=== PATIENT | female | born 1945 | race Caucasian/White ===

== ENCOUNTER → 2021-08-11 12:38 | Outpatient (CLI) | payer MEDICARE, OTHER, SELFPAY ==
[2021-08-11 13:20] LABS: Add Manual Diff / Slide Review NO; Basophils Absolute Auto 100 /uL (0-100); Basophils Percent Auto 0.8 % (0-2); Eosinophils Absolute Auto 800 /uL (0-450); Hematocrit 38.5 % (36-46); Hemoglobin 12.9 g/dL (12.0-16.0); Lymphocytes Absolute Auto 2200 /uL (1100-4500); Lymphocytes Percent Auto 22.7 % (25-40); Mean Corpuscular HGB Conc 33.6 % (30-36); Mean Corpuscular Hemoglobin 32.2 PG (26-34); Monocytes Absolute Auto 500 /uL (0-900); Monocytes Percent Auto 5.7 % (3-14); Neutrophils Absolute Auto 6000 /uL (1500-7000); Neutrophils Percent Auto 62.8 % (50-75); Platelet Count 258 X10^3/uL (150-400); Red Blood Cell Count 4.01 X10^6/uL (4.0-5.2); Red Cell Distribution Width 15.6 % (11.6-14.8); White Blood Cell Count 9.6 X10^3/uL (4.5-11.0)
[2021-08-11 14:04] LABS: Carbon Dioxide 28 mmol/L (22-32); Chloride 101 mmol/L (98-107); HEMOLYSIS < 15 (0-50); Potassium 4.4 mmol/L (3.4-5.1); Sodium 141 mmol/L (137-145)
== END ==
PROVIDERS: Referring Provider Orthopaedic Surgery; Visit Provider Orthopaedic Surgery
DX: Z01.818 Encounter for other preprocedural examination (principal); Z01.812 Encounter for preprocedural laboratory examination
CPT/HCPCS: 36415; 80051; 85025; 93005; 93010

== ENCOUNTER → 2021-09-06 16:04 | Outpatient (CLI) | payer MEDICARE, OTHER, SELFPAY ==
[2021-09-06 18:09] LABS: COVID19 -Nasal RAPID Negative (Negative)
== END ==
PROVIDERS: PCP Nurse Practitioner; Visit Provider Family Medicine Sleep Medicine
DX: Z20.822 Contact with and (suspected) exposure to COVID-19 (principal)
CPT/HCPCS: 87635; C9803

== ENCOUNTER 2021-09-09 14:39 | Inpatient (IN) | payer MEDICARE, OTHER, SELFPAY ==
[2021-09-01 09:55] VITALS: BMI 37.5
[2021-09-08] VITALS (15 sets, daily range): BP systolic 105–134; BP diastolic 45–62; PULSE 74–95; RESP 10–18; TEMP 34.3–36.5; O2SAT 12–98; BMI 37.4
--- NOTE | 2021-09-08 11:00 | DI.RAD.S_ITS ---
PROCEDURE: XR KNEE LT 1TO2V INDICATIONS: POST OP LEFT TOTAL KNEE TECHNIQUE: 3 views of the knee were acquired. COMPARISON: None. FINDINGS: Total knee arthroplasty in good position. Intra-articular and soft tissue air noted. Overlying skin sabrina present. No fracture. IMPRESSION: Total left knee arthroplasty in good position Approved by: Reynaldo Paulino M.D. on 09/08/2021 at 17:48
[2021-09-08] MEDS: LACTATED RINGERS 1,000 ML 42 ML IV ×2 (14:31→16:37)
[2021-09-08] MEDS: ACETAMINOPHEN 325 MG TABLET 975 MG PO (14:33)
[2021-09-08] MEDS: CELECOXIB 200 MG CAPSULE PO (14:33)
--- NOTE | 2021-09-08 15:03 | PM.PREOP ---
Pre-operative Note COVID-19 COVID-19 status: Negative Interval Note History & Physical reviewed/Exam performed by Physician: Yes Changes to H&P: No
--- NOTE | 2021-09-08 15:18 | P.OP_ITS ---
Operative Date/Time/Diagnoses Date of procedure: 09/08/21 Time of procedure: 18:01 Pre-op diagnosis: Left knee osteoarthritis Post-op diagnosis: same Procedure & Clinicians Procedure: Left total knee arthroplasty Same procedure as scheduled: Yes Indications: The patient presents today for total knee arthroplasty after failure of conservative treatment. The nature of the procedure including the risks and benefits, alternatives, postoperative course and expected outcome were discussed and all questions answered. Consent was obtained. Operative site confirmed and marked. Surgeon: Yasir Castillo Net Developer Architect: Nikki Sutton Anesthesia Type: General and Local Operative Notes Closure Type: primary Specimen(s): none sent Prosthetic devices, grafts, tissues, transplants, or devices: [employer]hew Delia BCS: 6 femoral component, 4 tibial component, 11 mm constrained BCS polyethylene tray and 35 x 7.5 mm round patella Applied: implant(s) Estimated Blood Loss (mL): 20 Blood products transfused: none Tourniquet time (min): 105 Procedure in detail: The patient was taken to the operative suite and placed under anesthesia. The patient was given prophylactic antibiotics prior to surgery. The patient was also given tranexamic acid, 1 g, just prior to surgery for postoperative hemostasis. The lateral knee was prepped and the joint injected with 20 mL of 1% Lidocaine with epinephrine. The knee was then prepped and draped in usual sterile fashion. The leg was exsanguinated with an Esmarch dressing and the tourniquet raised to 250 torr. A 15 cm anterior incision was made. Next a medial trivector arthrotomy was made. The extensor mechanism was marked to ensure accurate repair. Initial exposing dissection was carried out medially and laterally. The knee was then flexed and the intramedullary femoral guide anita placed. The distal femoral cut was made in 6? of valgus at the +0 position. The femoral size was measured and the appropriate cutting block was then placed and the anterior, posterior and chamfer cuts made. The intramedullary tibial alignment anita was then placed. The guide was set to remove approximately 10 mm from the less affected medial side. The proximal tibial cut was then made with an oscillating saw. All meniscus and bony debris was then removed. Posterior femoral osteophytes removed with a curved osteotome. Flexion extension gaps were checked. There was expected tightness on the lateral side. This was corrected using a 15 blade to release the lateral structures in a pie crust technique. There was still some degree of medial laxity due to stretching of medial collateral ligament. The soft tissues were then injected with a combination of 20 mL of half percent Marcaine with epinephrine and 20 mL of Exparel. The trial components were then placed. The knee was then extended and the patellar thickness was measured and a cut made removing approximately 8 mm of bone. The patella was then sized and drilled. Some excess lateral bone was excised and the patellofemoral ligament released. [The knee went into full extension and flexion to approximately 120? limited by soft tissue. There was good medial-lateral balance throughout motion with mild medial laxity Patellar tracking was excellent. The trial components were removed and the knee was cleansed with Pulsavac irrigation and dried. The final components were cemented with high viscosity vacuum mixed bone cement with antibiotics. The joint was filled with a dilute Betadine solution. The knee was held in extension and the patellar clamped until the cement was adequately cured. The knee was then irrigated. The extensor mechanism was closed with 5 interrupted #1 Vicryl sutures and a running Quill suture at approximately 90 degrees of flexion. The joint was then injected with a combination of 1 g of tranexamic acid and 20 mL of quarter percent Marcaine with epinephrine. The subcutaneous tissue was closed with 2 0 Vicryl. The skin was closed with sabrina and surgical adhesive. An Aquacel dressing and Hardeep wrap were then applied. The patient tolerated the procedure well and was returned to recovery room in good condition. Complications: none Post-operative Condition: stable Disposition: PACU Plan for aftercare: [facility] Protocol.
[2021-09-08] MEDS: CEFAZOLIN 2 GM/20 ML SYRINGE IV (15:40)
[2021-09-08] MEDS: TRANEXAMIC ACID 1,000 MG in SODIUM CHLORIDE 0.9% 100 ML 200 ML IV (15:42)
[2021-09-08] MEDS: LIDOCAINE 1% W/EPI 20 ML INJ (15:43)
--- NOTE | 2021-09-08 15:53 | SUR.OPER ---
Supine on padded OR bed. Pillow under head, arms secured on padded armboards <90 degree abduction. Safety belt across torso. Non-operative leg secured with tape over blanket over lower leg. Operative leg secured in DeMayo/Joey/Nathe positioner. Foam padded brace at thigh of operative leg.
[2021-09-08] MEDS: BUPIVACAINE 0.25% W/ EPI (PF) 40 ML, BUPIVACAINE LIPOSOME 266 MG, SODIUM CHLORIDE 0.9% ... INJ (16:05)
[2021-09-08] MEDS: BUPIVACAINE 0.25% W/ EPI (PF) 20 ML, TRANEXAMIC ACID 1,000 MG, SODIUM CHLORIDE 0.9% 10 ML INJ (16:33)
--- NOTE | 2021-09-08 18:41 | SUR.PHASEI ---
Addendum entered by Dora Clark R.N. 09/08/21 19:31: 1855-report completed to RN by phone. oxygen down to 3 lnc. sats wnl. respirations better.more awake and alert. continues to refuse offers for po fluids when asked. iv saline locked for transfer. 1901-To room by bed -with oxygen, and walker,a personal bag, and plastic bag of clothes. c/0 itching sensation on transfer to room -only to legs. 1904-In room, transfer of care to RN at bedside. patinent now itching lower arms. no rash. just arms and legs affected. RN aware-to reasess. Original Note: 09/08/2105-5908-Hjtwdks into Pacu. patient not on board. Patient got accidently discharged from Hospital,admitting called to re admit patient. all pacu charting is under discharge sections of pacu. 1834-floor called for report. RN unavailable. to call back. Daughter called and updated.
--- NOTE | 2021-09-08 19:49 | PC.NURSE ---
Pt arrived to unit at 191, report endorsed to oncoming RN for nights, patient settled and VSS,afebrile on 4LNC. She is A&Ox3, conversing easily reports numbess from knees down, able to wiggle toes. PIETRO wrap c/d/I.
[2021-09-08] MEDS: LACTATED RINGERS 1,000 ML 100 ML IV (21:41)
[2021-09-09 00:32] VITALS: BP 112/50; PULSE 77; RESP 16; TEMP 35.7; O2SAT 97
[2021-09-09] MEDS: ACETAMINOPHEN 325 MG TABLET 650 MG PO ×4 (02:00→20:46)
[2021-09-09] MEDS: CEFAZOLIN 2 GM/20 ML SYRINGE IV ×2 (02:00→09:25)
[2021-09-09] MEDS: ASPIRIN EC 81 MG TABLET PO ×3 (02:01→20:46)
[2021-09-09] MEDS: allopurinoL 300 MG TABLET PO ×3 (02:01→20:46)
[2021-09-09] MEDS: DOCUSATE 100 MG CAPSULE PO ×3 (02:01→20:46)
[2021-09-09 04:28] VITALS: BP 117/57; PULSE 79; RESP 16; TEMP 35.7; O2SAT 97
--- NOTE | 2021-09-09 04:51 | PC.NURSE ---
Pt arrived to the floor on 09/08 at 1910. This nurse process admission and noticed pt was not listed on pyxis. Further research indicated that pt was accidentally D/C while in PACU (see phase I recovery note by RN Eduardo). Pt was readmitted but pyxis issue remains. This nurse called [facility] but was told that they are unable to assist due to the type of admission error. This nurse immediately informed preceptor and coordinator of the issue. Administration of scheduled meds was significantly delayed because of this issue. This nurse notified MD via the answering service of the med administration delay and pt low temp (93.5 - 96.5). This nurse constantly monitored the pt throughout the night for safety due to internet media planner delays. Pt was alert, oriented, easily awaken from sleep, cooperative, v/s stable, and reports pain level at 3 out of 0 to 10 scale level throughout the shift. Issue was resolved at 0150 and first dose of scheduled meds was administered at 09/09 0201. QMM submitted.
[2021-09-09 06:15] LABS: Hemoglobin 11.2 g/dL (12.0-16.0)
[2021-09-09] MEDS: LACTATED RINGERS 1,000 ML 100 ML IV (07:30)
[2021-09-09 08:05] VITALS: BP 116/53; PULSE 83; RESP 16; TEMP 35.9; O2SAT 96
--- NOTE | 2021-09-09 09:20 | P.DS_ITS ---
History of Present Illness History of Present Illness Date Patient Seen: 09/09/21 Time Patient Seen: 09:21 Chief complaint: LT TKA *OPB* Narrative: The history and physical is contained in the chart previously completed note. Please refer to that note for this information. Discharge Providers Provider Date of admission: 09/08/21 18:16 Discharge Date: 09/09/21 Primary care physician: KRISSY Puentes Consults: 09/08/21 18:59 Consult to Discharge Planning Routine Comment: Consult to Physical Therapy Evaluate & Treat Comment: Physician Instructions: postop TKA protocol Consult to Respiratory Therapy Evaluate & Treat Comment: Physician Instructions: Evaluate and treat Discharge provider: Kev Willett MD Summary Hospital Course Discharge Diagnosis: 1. Left knee osteoarthritis 2. Post hemorrhagic anemia Hospital Course: The patient was admitted to the hospital and taken directly to the operating r oom on September 08, 2021 where she underwent a left total knee replacement by Dr. Yasir Csatillo. She had reasonable pain to control on postoperative day 1. At the time of this dictation the plan is for her to have physical therapy and then be discharged home later in the day. She has a mild post hemorrhagic anemia that should not require specific treatment. Status at Discharge Cognitive/behavioral status at discharge: oriented Functional status at discharge: uses cane/walker Overall status at discharge: patient is progressing back to baseline Time Spent with Patient Time spent: Less than 30 minutes Exam Vital Signs (past 8 hours): - 09/09/21 04:28 09/09/21 08:05 Temperature 96.3 F L 96.6 F L Pulse Rate 79 83 Respiratory Rate 16 16 Blood Pressure 117/57 L 116/53 L Pulse Oximetry 97 96 Oxygen Delivery Method Nasal Cannula Oxygen Flow Rate 2 Narrative Exam Narrative: Left knee wound is dressed with no drainage on the bandage. Calf is soft. Light touch is unchanged from preoperative and motion is intact in the left lower extremity. Objective Labs Result Diagrams: 09/09/21 05:47 Labs: Laboratory Results - last 24 hr 09/09/21 05:47 Hgb 11.2 L Hct 34.0 L PFSH Medical History (Updated 09/01/21 @ 10:19 by Amy Rios RN) Arthritis Diabetes GERD (gastroesophageal reflux disease) HTN (hypertension) Neuropathy Osteoarthritis Pneumonia (12/2020) Tinnitus Wound of foot (08/28/21) Surgical History (Updated 09/01/21 @ 10:17 by Amy Rios RN) History of bilateral tubal ligation History of surgery (~2009) History of surgery Hx of bilateral cataract extraction Hx of hand surgery (~2016) Hx of sinus surgery Hx of tonsillectomy Social History household members: none Smoking Status: Never smoker alcohol intake: current Discharge Assessment & Plan Assessment and Plan Assessment: Stable postoperative day 1 status post left total knee replacement. She has a mild post hemorrhagic anemia that should resolve with time. Plan of Treatment: Physical therapy this morning. At this time the plan is for her to discharge into the care of her sister in [place] later in the day. Discharge prescriptions have been written for oxycodone. She is to use Naprosyn and Tylenol for additional pain control and low-dose aspirin for DVT prophylaxis. Discharge Plan Discharge Plan Patient Disposition: Home Discharge orders & Medications Prescriptions: New acetaminophen 325 mg Tablet 650 mg PO TID 30 Days Qty: 180 0RF aspirin 81 mg Tablet,Delayed Release (Dr/Ec) 81 mg PO BID 42 Days Qty: 84 0RF oxycodone 5 mg Tablet 5 mg PO Q4H PRN (Reason: Pain, Moderate (4-6)) Qty: 40 0RF Continued amlodipine 10 mg Tablet 10 mg PO DAILY 0RF metformin 1,000 mg Tablet 1,000 mg PO BID 0RF allopurinol 300 mg Tablet 300 mg PO BID 0RF olmesartan-hydrochlorothiazide 40-12.5 mg Tablet 1 tab PO DAILY 0RF omeprazole 20 mg Tablet,Delayed Release (Dr/Ec) 20 mg PO Q OTHER DAY PRN (Reason: GERD) 0RF Slow Fe 142 mg (45 mg iron) Tablet Extended Release 142 mg PO DAILY 0RF naproxen sodium [Aleve] 220 mg Capsule 220 mg PO DAILY PRN (Reason: Pain) 0RF Label Comments: 1 month at least Discontinued aspirin [Aspir-81] 81 mg Tablet,Delayed Release (Dr/Ec) 81 mg PO DAILY PRN (Reason: Pain) 0RF Label Comments: several weeks acetaminophen 500 mg Tablet 500 mg PO DAILY PRN (Reason: Pain) 0RF Label Comments: 2-3 weeks Follow up/Referrals: Mere Gurrola ARNP [Primary Care Provider] - Yasir Castillo MD [Physician] - 2 Weeks Kev Willett MD [Physician] - Discharge Health Status Multidrug resistant organism: No MDRO Diet/Activity/Treatments Diet: Diet as Tolerated and Carb-consistent/Diabetic Activity: You may bear weight as tolerated on your left leg. Cold/Heat Therapy: Apply ice to the left knee for 15 minutes every hour as needed for pain control. Skin/Wound/Dressing Care Report to your healthcare provider any signs of infection, such as:: chills, fe sherri, night sweats, increased pain, unusual drainage and unusual redness Dressing: You may remove the Hardeep wrap 3 days after surgery and shower normally with the deeper dressing in place. Leave the deeper dressing in place until your postoperative follow-up. If the central strip of the deeper dressing becomes saturated with either water or blood, please call the office to have it evaluated. Visit Report/Discharge Packet Instructions: DI for Knee Replacement, DI for Prescription Opioid Use Stand Alone Forms: Surgery Discharge Discharge Data Primary Care Provider: Mere Gurrola Attending Provider: Yasir Castillo VTE Deep Vein Thrombosis/Pulmonary Embolism Present on Admission: No
[2021-09-09] MEDS: hydroCHLOROthiazide 25 MG TABLET 12.5 MG PO (09:22)
[2021-09-09] MEDS: LOSARTAN 50 MG TABLET 100 MG PO (09:22)
[2021-09-09] MEDS: AMLODIPINE 5 MG TABLET 10 MG PO (09:23)
[2021-09-09] MEDS: METFORMIN HCL 500 MG TABLET 1000 MG PO ×2 (09:23→16:57)
--- NOTE | 2021-09-09 10:51 | PT.IIE ---
Current Diagnoses Unilateral primary osteoarthritis, left knee (09/08/21) Surgery Performed Operation Date: 09/08/21 15:00 Actual Procedures p Total Knee Arthroplasty(Left) - Yasir Castillo MD Medical History (Last Updated 09/01/21 @ 10:19 by Amy Rios RN) Arthritis Diabetes GERD (gastroesophageal reflux disease) HTN (hypertension) Neuropathy Osteoarthritis Pneumonia (12/2020) Tinnitus Wound of foot (08/28/21) Physical Therapy Inpatient Evaluation/Re-Eval M1 PT/OT-IP Prior Functional Status Start: 09/09/21 10:38 Freq: Status: Active Protocol: Document 09/09/21 10:39 BC (Rec: 09/09/21 10:51 BC [id number]) Medical Review Prior Functional Status Medical History Reviewed Yes Mobility and Gait Pt reports using SPC for ambulation due to L knee weakness. Activities of Daily Living and IADL's Independent Prior Functional Level (Other details) Pt reports being fully independent and use of SPC. She lives alone. She has a supportive sister and adult child that live nearby. Social History Household Members none Living Arrangements House Number of Floors (Floors) One Floor Number of Stairs To Enter/Railing? 4 steps to enter with railing Home Environment Standard Height Toilet Home Equipment Front Wheel Walker,Straight Cane Employment Status Retired M2 PT-IP Current Condition Start: 09/09/21 10:38 Freq: Status: Active Protocol: Document 09/09/21 10:39 BC (Rec: 09/09/21 10:51 BC [id number]) Physical Therapy Current Condition Current Condition Evaluation Date 09/09/21 Treatment Diagnosis abnormality of gait, impaired LLE knee ROM/strength Onset Date 09/08/21 M3 PT-IP Subjective Start: 09/09/21 10:38 Freq: Status: Active Protocol: Document 09/09/21 10:39 BC (Rec: 09/09/21 10:51 BC [id number]) Subjective Physical Therapy Visit Type Type Initial Evaluation Visit Start Time 09:50 Visit Stop Time 10:30 Total Visit Minutes 40 Physical Therapy Visit Comments Patient Goals Build up strength in LLE so it does not buckle on her anymore Therapy Pain Assessment Pain When Pain Assessed At Rest Pain Present Pain Present Denied Pain M4 PT-IP Mobility and Gait Start: 09/09/21 10:38 Freq: Status: Active Protocol: Document 09/09/21 10:39 BC (Rec: 09/09/21 10:51 [id number]) PT-Bed Mobility Assessment Supine to Sit Supine to Sit Standby Assistance Sit to Supine Sit to Supine Contact Guard Assistance Scooting Scooting to Edge of Bed Standby Assistance PT-Transfer Assessment Sit to and From Stand Sit to and from Stand Contact Guard Assistance, Minimal Assistance,1 Person Assistance,Use of Upper Extremities Equipment Transfer Assistive Device Front Wheeled Walker Comments Mobility Comments Pt did not want to transfer to chair this AM. She was able to take 4 lateral steps with FWW along edge of bed. She did not feel comfortable with attempting any further gait assessment due to lightheadedness. PT-Balance Assessment Sitting Balance and Reactions Static Sitting Balance Ability Normal Dynamic Sitting Balance Ability Normal Standing Balance and Reactions Static Standing Balance Ability Fair Dynamic Standing Balance Ability Fair M5 PT-IP Objective Assessments Start: 09/09/21 10:38 Freq: Status: Active Protocol: Document 09/09/21 10:39 BC (Rec: 09/09/21 10:51 [id number]) Orientation Orientation/Cognition Level of Alertness Alert Orientation Name,Age,Birthday,Month,Date, Year,Day of Week,Place, Situation Gross Range of Motion Upper Extremity ROM Assessment Within Functional Limits Lower Extremity ROM Assessment Left Impaired Impairments L knee AROM ~5-60 deg Strength Upper Extremity Strength Assessment Within Functional Limits Lower Extremity Strength Assessment Left Impaired Hip 3/5 Knee 2+ to 3/5 Ankle 5/5 Coordination Assessment Gross Coordination Gross Coordination WNL Sensation Assessment Sensation Gross Sensation Right LE Impaired,Left LE Impaired Comments Sensation Comments Pt reports BLE neuropathy Muscle Tone Muscle Tone WNL Yes M6 PT-IP Treatment Start: 09/09/21 10:38 Freq: Status: Active Protocol: Document 09/09/21 10:39 BC (Rec: 09/09/21 10:51 [id number]) Physical Therapy Treatment Exercises Exercises Ankle Pumps,Gluteal Sets,Quad Sets,Heel Slides Education Education Provided Precautions,Post-Op Packet, Safety M7 PT-IP Assessment and Plan Start: 09/09/21 10:38 Freq: Status: Active Protocol: Document 09/09/21 10:39 BC (Rec: 09/09/21 10:51 [id number]) PT Summary Assessment and Plan Potential Rehabilitation Potential Excellent Status of Condition at Evaluation Stable Summary Impairments ROM,Strength,Balance, Coordination,Bed Mobility, Transfers,Gait,Activity Tolerance Progress Towards Goals Progressing Toward Goals Assessment Summary Pt admitted for L TKA due to OA. She reports ~1 year of using a SPC for stability due to LLE knee buckling/weakness. She admits to several falls prior to use of SPC but is otherwise independent with mobility and self/home care ADLs. She lives alone but has a supportive family. Her sister will come to stay with her at discharge. CLOF: Pt is requiring CGA for mobility. She is demonstrating good safety awareness and proper use of FWW for transfers. Her limitation this morning was lightheadedness and faint feeling. BP supine 107/55; seated 123/66; standing 117/60 . In standing she was able to take several lateral steps to gain HOB. She did not feel comfortable with attempting any further ambulation away from bed due to dizziness/ faint feeling. Pt was assisted back to bed with all needs in reach. Pt will benefit from IPPT to address further mobility training, stair training and education on HEP. Goals Bed Mobility Goal Independent Transfer Goal Independent,Front Wheeled Walker Gait Goal Standby Assistance,Front Wheel Walker Gait Distance 75 Other Goals Pt will ascend/descend 4 steps with railing and min A to safely access her home. Days to Meet Goals 3 Frequency of Treatment Frequency Of Treatment Twice a Day Treatment Plan Physical Therapy Treatment Plan Bed Mobility Training,Transfer Training,Gait Training, Therapeutic Exercise,Balance Retraining,Post Op Education, Discharge Planning, Neuromuscular Re-ed, Coordination Retraining Weight Bearing Status Weight Bearing Status Weight Bear as Tolerated Recommendations To Nursing Amount of Assist Needed 1 Person Assist Discharge Recommendations PT Discharge Recommendations Home with Assistance, Outpatient PT Other Discharge Recommendations Pt to discharge home with son assisting at stairs and sister to stay with her for ~1 week. Equipment Needed for Home Before She has a FWW/SPC. Further Discharge review on bathroom DME needed. Transportation Needs at Discharge Private Vehicle
--- NOTE | 2021-09-09 13:54 | CM.DANOTE ---
Addendum entered by SALVADOR Sanchez 09/09/21 15:20: ADD: Per PM PT session, pt remains orthostatic and not stable for d/c home with sister yet today and PT will continue working with pt in the AM for stairs and CG training with sister. RN and UR RN called Ortho MD to update and MD agreeable with cancelling discharge and changing pt's admission order. BF Original Note: Patient is a 76 yo female who was admitted on 09/08/21 for LTKA. Pt has [employer] and [employer] for insurance and her PCP is Mere Gurrola. EMR was reviewed. Per Ortho , pt tolerated surgical intervention well and may be medically stable to d/c home tonight vs tomorrow pending progress with PT. Per PT, pt was only able to side step about 4 steps before becoming dizzy and needing to sit. BP was stable but pt was not feeling well. PT will attempt further assessment this afternoon when sister present for possible stairs and CG training. PT recommending likely home with family assist and outpt PT pending progress. SW met bedside with pt and sister and explained role and pt confirms she lives at home alone in [facility] but her sister lives nearby and plans to stay with pt for a couple weeks to assist and pt's adult son is local and can assist with getting up the steps into the house. Pt states her Dtr is not local but is her DPOA and pt has lots of supportive family and all have hx of surgery for knees, joints, shoulders, etc due to genetic arthritis. Pt states she still feels dizzy but agreeable to attempting further PT soon towards determining d/c home tonight vs tomorrow. Pt denies any hx of HH or SNF and has outpt PT already set up. Plan: SW to follow for further PT this afternoon to confirm safe plan of d/c home via sister POV and sister to stay to assist a few weeks and outpt PT and any further identified discharge planning needs. Pt still needs to do stairs and CG training with sister. SALVADOR Sanchez Discharge Planning/Care Management CM Discharge Assessment Start: 09/09/21 13:52 Freq: Status: Active Protocol: Document 09/09/21 13:52 BF (Rec: 09/09/21 13:54 BF [id number]) Discharge Planning Assessment Assigned Master Welder SALVADOR Price DPOA/Assigned Designee Name Shruthi Clark Contact Information [phone] Advance Directives? Yes Advance Directives on File No History Provided By Patient,Family Member,Medical Record Has Patient been admitted in last 30 No days? Prior Living Arrangements House Household Members none Type of transporation used prior to Drives own vehicle admit Independent with ADL's Yes Is patient alert and oriented? Yes Caregiver for Another No Community Services used prior to Physical Therapy admission: DME Already Rented / Owned Cane Patient/Family Preference OP PT Therapy Barriers to Discharge No Comment Dizzy, orthostatics may be a barrier to d/c today Discharge Plan Home Community Services Physical Therapy Transportation Arrangement Sister bedside and plans to transport at d/c Additional Comment Pending further PT and recommendations Whiteboard Updated in Patient Room with Yes name and ext. # of Master Welder Review Status In Process Please Provide Date Initial DC 09/09/21 Assessment Was Performed Next Review Type Continued Stay Review Pre-Anesthesia Assessment Start: 09/01/21 09:55 Freq: Status: Discharge Protocol: Document 09/01/21 09:55 CAB (Rec: 09/01/21 10:32 CAB [id number]) Pre-Anesthesia Assessment Preferred Name Sherrell or Meredith Patient Information Reviewed Via Phone Assessment Assessment Completed With Patient Diagnostic Results CBC,EKG,Electrolytes Comment Labs/ECG @ [facility] 08/11/21, COVID screen @ 09/06/21 Primary Care Provider Mere Gurrola Seen Specialist in Last 12 Months Yes Specialist Seen Orthopedist Primary Language Indonesian Broadloom Weaver Required No Height 170.18 cm Weight 108.862 kg Body Mass Index (BMI) 37.5 Hearing Ability Normal Visual Assist Magnifying Glass Dentition Type Teeth, Natural Present Barriers to Learning None Hx Anesthesia Reactions No Hx Family Anesthesia Reaction No Hx Malignant Hyperthermia No Hx Blood Transfusions No Anesthesia Review Requested No Charge Operator No alcohol intake current alcohol intake frequency holidays/special occasions only Smoking Status Never smoker Substance Use Type does not use Pain Present Pain Reported Musculoskeletal Symptoms Abnormal Gait,Back Pain, Difficulty Walking,Joint Pain History of Falling (Recent or History of Yes ) Patient is completely paralyzed or No completely immobile Prosthesis or Orthotic Device Cane Mental Status Oriented to own ability Is patient on oxygen? No Does patient have VERA/SOB No Hx Sleep Apnea No Currently Taking a Beta Shirley No Can You Climb a Flight of Stairs Without Yes SOB Hx Chest Pain No Hx SOB No Hx Syncope or Dizziness No Anti-Coagulant Therapy No Has a Program Supervisor No Cardiac Testing No Hx Pacemaker/ICD No Pacemaker Rep Required? 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 Received a COVID vaccine? Yes Received all doses? Yes Marital Status / Lives With none Prior Living Arrangements House Number of Floors (Floors) Two Floors Support System Child/Children,Sibling(s) Does the Patient Have Assistance After Yes: Sister will stay for 2 Surgery weeks to assist w/care [facility] Patient Discharge Plan Description Return Home Comment Pt advised overnight length of stay per surgeon Feels Safe in Current Environment Yes Been Physically Hurt or Threatened By a No Person in Current Environment Do you have thoughts of harming yourself None or others? Are you currently considering suicide? No Do you have a plan to hurt yourself or No Plan others? Do You Have Any Spiritual Beliefs That No May Affect Your HC Choices? Do You Have Any Cultural Practices That No May Affect Your HC Choices? Comment Lo Who Can We Speak to About Patient's Care Family, friends Identifying Code for Release of Patient Declines to issue Information Health Care Proxy/Next of Kin Randi (daughter) Health Care Proxy Emergency Contact Name Hillary (sister) Emergency Contact Advance Directives? Yes Advance Directives on File No Requested Patient Bring Advanced Yes Directives DOS Power of Dormitory Counselor No PAC Instructions Diabetes instructions,Do not shave/clip surgical site, Durable medical equipment, Medications to take/avoid, Nasal antibiotic,No ETOH/ petroleum product on skin DOS, NPO,Post-op transportation,Pre -surgical wash,Sturdy shoes/ comfortable clothes,Do not bring valuables and remove jewelry
--- NOTE | 2021-09-09 14:46 | PT.IPTN ---
Current Diagnoses Unilateral primary osteoarthritis, left knee (09/08/21) Surgery Performed Operation Date: 09/08/21 15:00 Actual Procedures p Total Knee Arthroplasty(Left) - Yasir Castillo MD Physical Therapy Treatment Note M2 PT-IP Current Condition Start: 09/09/21 10:38 Freq: Status: Active Protocol: Document 09/09/21 10:39 BC (Rec: 09/09/21 10:51 BC [id number]) Physical Therapy Current Condition Current Condition Evaluation Date 09/09/21 Treatment Diagnosis abnormality of gait, impaired LLE knee ROM/strength Onset Date 09/08/21 M3 PT-IP Subjective Start: 09/09/21 10:38 Freq: Status: Active Protocol: Document 09/09/21 14:38 BC (Rec: 09/09/21 14:45 BC [id number]) Subjective Physical Therapy Visit Type Type Treatment Note Visit Start Time 13:45 Visit Stop Time 14:15 Total Visit Minutes 29 Physical Therapy Visit Comments Patient Goals To do stairs before d/c home Therapy Pain Assessment Pain When Pain Assessed At Rest Pain Present Pain Present Denied Pain M4 PT-IP Mobility and Gait Start: 09/09/21 10:38 Freq: Status: Active Protocol: Document 09/09/21 14:38 BC (Rec: 09/09/21 14:45 BC [id number]) PT-Bed Mobility Assessment Supine to Sit Supine to Sit Independent Sit to Supine Sit to Supine Contact Guard Assistance Scooting Scooting to Edge of Bed Independent Scooting Up and Down in Bed Independent PT-Transfer Assessment Sit to and From Stand Sit to and from Stand Standby Assistance Equipment Transfer Assistive Device Gait Belt,Front Wheeled Walker Transfers Transfer Destination Bed Transfer Technique Stand Pivot Transfer Ability Level of Assist Contact Guard Assistance Comments Mobility Comments CGA for upright mobility due to ongoing dizziness/ lightheaded feeling. Gait Assessment Gait Gait Assistance Required: Contact Guard Assist Distance (Feet) 50 Assistive Devices Assistive Device Gait Belt,Front Wheeled Walker Gait Deviations General Gait Pattern Decreased Stride Length, Decreased Feet Clearance,Step- to Gait Factors Limiting Gait Function Factors Limiting Gait Function Decreased Strength,Limited Range of Motion Comments Gait Comments Step to gait pattern with reduced LLE knee flexion in swing. Pt ambulated 50' before needing to return to seated position due to increasing dizziness. Stair Climbing Assessment Comments Stair Climbing Comments Attempted stair training but Pt reports needing to lie down and feeling to lightheaded. Reviewed technique with Pt and sister with therapist demonstrating guarding techniques and support that sister can provide at home. PT-Balance Assessment Sitting Balance and Reactions Static Sitting Balance Ability Normal Dynamic Sitting Balance Ability Normal Standing Balance and Reactions Static Standing Balance Ability Fair Dynamic Standing Balance Ability Fair Device Used FWW M5 PT-IP Objective Assessments Start: 09/09/21 10:38 Freq: Status: Active Protocol: Document 09/09/21 10:39 BC (Rec: 09/09/21 10:51 BC [id number]) Orientation Orientation/Cognition Level of Alertness Alert Orientation Name,Age,Birthday,Month,Date, Year,Day of Week,Place, Situation Gross Range of Motion Upper Extremity ROM Assessment Within Functional Limits Lower Extremity ROM Assessment Left Impaired Impairments L knee AROM ~5-60 deg Strength Upper Extremity Strength Assessment Within Functional Limits Lower Extremity Strength Assessment Left Impaired Hip 3/5 Knee 2+ to 3/5 Ankle 5/5 Coordination Assessment Gross Coordination Gross Coordination WNL Sensation Assessment Sensation Gross Sensation Right LE Impaired,Left LE Impaired Comments Sensation Comments Pt reports BLE neuropathy Muscle Tone Muscle Tone WNL Yes M6 PT-IP Treatment Start: 09/09/21 10:38 Freq: Status: Active Protocol: Document 09/09/21 14:38 BC (Rec: 09/09/21 14:45 [id number]) Physical Therapy Treatment Other Treatments Other Treatment Performed Verbally reviewed exercises with Pt and sister from handout. She has been doing ap 's, quad sets and heel slides from AM. Discussed recommendation of moving every 1-2 hrs at home ie gait and/ or exercises. M7 PT-IP Assessment and Plan Start: 09/09/21 10:38 Freq: Status: Active Protocol: Document 09/09/21 14:38 BC (Rec: 09/09/21 14:45 [id number]) PT Summary Assessment and Plan Potential Rehabilitation Potential Excellent Status of Condition at Evaluation Evolving Summary Impairments ROM,Strength,Gait,Activity Tolerance Progress Towards Goals Progressing Toward Goals Assessment Summary Pt agreeable to PT. Reports minimal food at breakfast and at lunch today. She continues to feel dizzy when upright for too long. Attempted sitting up for lunch and using restroom with nsng support both of which she had increasing lightheadedness. BP supine 117/50; sitting 114/ 50; standing 118/52; after gait 115/40 Due to low diastolic BP and symptomatic, we did not pursue stair training any further than demo and showing sister guarding techniques. Recommend PT in AM to review gait and stair mgmt. Provided Pt with string cheese and applesauce to have in room for snacking. Sister and Pt had questions answered regarding mobility at home and stair training. Goals Bed Mobility Goal Independent Transfer Goal Independent,Front Wheeled Walker Gait Goal Standby Assistance,Front Wheel Walker Gait Distance 75 Other Goals Pt will ascend/descend 4 steps with railing and min A to safely access her home. Days to Meet Goals 3 Frequency of Treatment Frequency Of Treatment Twice a Day Treatment Plan Physical Therapy Treatment Plan Bed Mobility Training,Transfer Training,Gait Training, Therapeutic Exercise,Balance Retraining,Post Op Education, Discharge Planning, Neuromuscular Re-ed, Coordination Retraining Weight Bearing Status Weight Bearing Status Weight Bear as Tolerated Recommendations To Nursing Amount of Assist Needed 1 Person Assist Discharge Recommendations PT Discharge Recommendations Home with Assistance, Outpatient PT Equipment Needed for Home Before None Discharge Transportation Needs at Discharge Private Vehicle
[2021-09-09 14:55] VITALS: BP 103/40; PULSE 80; RESP 16; TEMP 36; O2SAT 95
[2021-09-09 20:18] VITALS: BP 103/41; PULSE 83; RESP 18; TEMP 35.9; O2SAT 94
[2021-09-09 22:00] VITALS: O2SAT 96
[2021-09-10 00:08] VITALS: BP 114/42; PULSE 77; RESP 16; TEMP 36.2; O2SAT 94
[2021-09-10 06:33] VITALS: BP 103/50; PULSE 90; RESP 17; TEMP 36.3; O2SAT 94
[2021-09-10 08:05] VITALS: BP 107/47; PULSE 88; RESP 18; TEMP 36.1; O2SAT 96
[2021-09-10] MEDS: METFORMIN HCL 500 MG TABLET 1000 MG PO (09:03)
--- NOTE | 2021-09-10 09:15 | PM.DS.1 ---
History of Present Illness History of Present Illness Chief complaint: LT TKA *OPB* Narrative: The history and physical is contained in the chart previously completed note. Please refer to that note for this information. Discharge Providers Provider Date of admission: 09/09/21 14:39 Discharge Date: 09/10/21 Primary care physician: KRISSY Puentes Consults: 09/08/21 18:59 Consult to Discharge Planning Routine Comment: Consult to Physical Therapy Evaluate & Treat Comment: Physician Instructions: postop TKA protocol Consult to Respiratory Therapy Evaluate & Treat Comment: Physician Instructions: Evaluate and treat Discharge provider: Kev Willett MD Summary Hospital Course Discharge Diagnosis: 1. Left knee osteoarthritis 2. Post hemorrhagic anemia 3. Orthostatic hypotension Hospital Course: This is an addendum to the previously dictated discharge summary. The patient was admitted to the hospital September 08, 2021 where she underwent a left total knee replacement. She tolerated this well and was comfortable however when she was mobilized with therapy she had some dizziness and unsteadiness which required her discharge to be canceled on September 09. At the time of this dictation it is felt she will be able to go home today after additional physical therapy. Status at Discharge Cognitive/behavioral status at discharge: at baseline, oriented Functional status at discharge: uses cane/walker Overall status at discharge: patient is progressing back to baseline Time Spent with Patient Time spent: Less than 30 minutes Exam Vital Signs (past 8 hours): - 09/10/21 06:33 09/10/21 08:05 Temperature 97.3 F L 97 F L Pulse Rate 90 88 Respiratory Rate 17 18 Blood Pressure 103/50 L 107/47 L Pulse Oximetry 94 96 Oxygen Delivery Method Room Air Oxygen Flow Rate 0 Narrative Exam Narrative: Left knee wound is dressed with no drainage on the bandage. Calf is soft. Light touch and motion are intact in the left lower extremity. Objective Labs Result Diagrams: 09/09/21 05:47 [facility] Medical History (Updated 09/01/21 @ 10:19 by Amy Rios RN) Arthritis Diabetes GERD (gastroesophageal reflux disease) HTN (hypertension) Neuropathy Osteoarthritis Pneumonia (12/2020) Tinnitus Wound of foot (08/28/21) Surgical History (Updated 09/01/21 @ 10:17 by Amy Rios RN) History of bilateral tubal ligation History of surgery (~2009) History of surgery Hx of bilateral cataract extraction Hx of hand surgery (~2017) Hx of sinus surgery Hx of tonsillectomy Social History household members: none Smoking Status: Never smoker alcohol intake: current Discharge Assessment & Plan Assessment and Plan Assessment: Stable postoperative day 2 status post left total knee replacement. She has a mild post hemorrhagic anemia that should resolve with time. She did have episodes of dizziness when mobilized with physical therapy yesterday which required cancellation of her discharge. She appears to be having less symptoms related to orthostasis this morning. Plan of Treatment: Physical therapy this morning. At this time the plan is for her to discharge into the care of her sister in [place] later in the day. Discharge prescriptions have been written for oxycodone. She is to use Naprosyn and Tylenol for additional pain control and low-dose aspirin for DVT prophylaxis. Discharge Plan Discharge Plan Patient Disposition: Home Discharge orders & Medications Prescriptions: New acetaminophen 325 mg Tablet 650 mg PO TID 30 Days Qty: 180 0RF aspirin 81 mg Tablet,Delayed Release (Dr/Ec) 81 mg PO BID 42 Days Qty: 84 0RF oxycodone 5 mg Tablet 5 mg PO Q4H PRN (Reason: Pain, Moderate (4-6)) Qty: 40 0RF Continued amlodipine 10 mg Tablet 10 mg PO DAILY 0RF metformin 1,000 mg Tablet 1,000 mg PO BID 0RF allopurinol 300 mg Tablet 300 mg PO BID 0RF olmesartan-hydrochlorothiazide 40-12.5 mg Tablet 1 tab PO DAILY 0RF omeprazole 20 mg Tablet,Delayed Release (Dr/Ec) 20 mg PO Q OTHER DAY PRN (Reason: GERD) 0RF Slow Fe 142 mg (45 mg iron) Tablet Extended Release 142 mg PO DAILY 0RF naproxen sodium [Aleve] 220 mg Capsule 220 mg PO DAILY PRN (Reason: Pain) 0RF Label Comments: 1 month at least Discontinued aspirin [Aspir-81] 81 mg Tablet,Delayed Release (Dr/Ec) 81 mg PO DAILY PRN (Reason: Pain) 0RF Label Comments: several weeks acetaminophen 500 mg Tablet 500 mg PO DAILY PRN (Reason: Pain) 0RF Label Comments: 2-3 weeks Follow up/Referrals: Mere Gurrola ARNP [Primary Care Provider] - Yasir Castillo MD [Physician] - 2 Weeks Kev Willett MD [Physician] - Discharge Health Status Multidrug resistant organism: No MDRO Diet/Activity/Treatments Diet: Diet as Tolerated and Carb-consistent/Diabetic Activity: You may bear weight as tolerated on your left leg. Cold/Heat Therapy: Apply ice to the left knee for 15 minutes every hour as needed for pain control. Skin/Wound/Dressing Care Report to your healthcare provider any signs of infection, such as:: chills, fever, night sweats, increased pain, unusual drainage and unusual redness Dressing: You may remove the Hardeep wrap 3 days after surgery and shower normally with the deeper dressing in place. Leave the deeper dressing in place until your postoperative follow-up. If the central strip of the deeper dressing becomes saturated with either water or blood, please call the office to have it evaluated. Visit Report/Discharge Packet Instructions: DI for Knee Replacement, DI for Prescription Opioid Use Stand Alone Forms: Surgery Discharge Discharge Data Primary Care Provider: Mere Gurrola VTE Deep Vein Thrombosis/Pulmonary Embolism Present on Admission: No
[2021-09-10] MEDS: DOCUSATE 100 MG CAPSULE PO (09:16)
[2021-09-10] MEDS: polyethylene glycoL 3350 17 GM POWD.PACK PO (09:16)
[2021-09-10] MEDS: ACETAMINOPHEN 325 MG TABLET 650 MG PO (09:18)
[2021-09-10] MEDS: ASPIRIN EC 81 MG TABLET PO (09:32)
[2021-09-10 09:50] VITALS: O2SAT 95
--- NOTE | 2021-09-10 09:51 | PT.IPTN ---
Current Diagnoses Unilateral primary osteoarthritis, left knee (09/09/21) Surgery Performed Operation Date: 09/08/21 15:00 Actual Procedures p Total Knee Arthroplasty(Left) - Yasir Castillo MD Physical Therapy Treatment Note M2 PT-IP Current Condition Start: 09/09/21 10:38 Freq: Status: Active Protocol: Document 09/09/21 10:39 BC (Rec: 09/09/21 10:51 BC [id number]) Physical Therapy Current Condition Current Condition Evaluation Date 09/09/21 Treatment Diagnosis abnormality of gait, impaired LLE knee ROM/strength Onset Date 09/08/21 M3 PT-IP Subjective Start: 09/09/21 10:38 Freq: Status: Active Protocol: Document 09/10/21 09:51 AW (Rec: 09/10/21 12:30 AW [id number]) Subjective Physical Therapy Visit Type Type Treatment Note Visit Start Time 09:10 Visit Stop Time 09:51 Total Visit Minutes 41 Physical Therapy Visit Comments Patient Comments Pt had a good night's rest and is feeling ready to work on stairs Therapy Pain Assessment Pain When Pain Assessed During Mobility Pain Present Pain Present Pain Reported Location Left Knee Intensity 1 Scale Used Numeric (0 - 10) M4 PT-IP Mobility and Gait Start: 09/09/21 10:38 Freq: Status: Active Protocol: Document 09/10/21 09:51 AW (Rec: 09/10/21 12:30 AW [id number]) PT-Bed Mobility Assessment Supine to Sit Supine to Sit Standby Assistance PT-Transfer Assessment Sit to and From Stand Sit to and from Stand Standby Assistance Equipment Transfer Assistive Device Gait Belt,Front Wheeled Walker Transfers Transfer Destination Chair Transfer Technique Stand Pivot Transfer Ability Level of Assist Standby Assistance Comments Mobility Comments Pt was sitting up in bed as PT arrived. Flattened HOB and BP was 113/39 supine HR 93. She sat up EOB SBA and BP was 106/ 38 HR 100. She stood and transferred to the chair with FWW SBA. BP was 116/43 HR 103. Pt denied lightheadedness or dizziness. Pt stood SBA and used FWW to ambulate in the halls 90 feet to the stairs SBA. Prior to stair training, BP was 128/54 HR 111. Pt walked back to the room with FWW SBA and transferred to the chair. After activity, sitting BP was 84/41 HR 102. Taken again, BP was 99/36 HR 92. RN was made aware of BP. Gait Assessment Gait Gait Assistance Required: Standby Assistance Distance (Feet) 180 Able to Maintain Weight Bearing Status Yes During Gait Assistive Devices Assistive Device Gait Belt,Front Wheeled Walker Gait Deviations General Gait Pattern Decreased Stride Length, Decreased Feet Clearance,Step- to Gait Factors Limiting Gait Function Factors Limiting Gait Function Decreased Strength,Limited Range of Motion Comments Gait Comments Pt responded well to cues for LLE heelstrike which improved step length and LLE knee flexion in swing Stair Climbing Assessment Evaluation Level of Assist On Stairs Minimal Assistance,Moderate Assistance,1 Person Assistance Devices Stair Climbing Assistive Devices Right Railing Technique/Endurance Stair Climbing Direction Ascend and Descend Stair Climbing Technique Step to Step Number of Steps Climbed 3 Stair Climbing Set # Repetitions (reps) 1 Comments Stair Climbing Comments Instructed pt in stair climbing technique. Pt used R rail ascending and mod A via SINGEING [employer] on the left to ascend; reverse with min A to descend. PT-Balance Assessment Sitting Balance and Reactions Static Sitting Balance Ability Normal Dynamic Sitting Balance Ability Normal Standing Balance and Reactions Static Standing Balance Ability Good Dynamic Standing Balance Ability Fair Device Used FWW M5 PT-IP Objective Assessments Start: 09/09/21 10:38 Freq: Status: Active Protocol: Document 09/09/21 10:39 BC (Rec: 09/09/21 10:51 BC [id number]) Orientation Orientation/Cognition Level of Alertness Alert Orientation Name,Age,Birthday,Month,Date, Year,Day of Week,Place, Situation Gross Range of Motion Upper Extremity ROM Assessment Within Functional Limits Lower Extremity ROM Assessment Left Impaired Impairments L knee AROM ~5-60 deg Strength Upper Extremity Strength Assessment Within Functional Limits Lower Extremity Strength Assessment Left Impaired Hip 3/5 Knee 2+ to 3/5 Ankle 5/5 Coordination Assessment Gross Coordination Gross Coordination WNL Sensation Assessment Sensation Gross Sensation Right LE Impaired,Left LE Impaired Comments Sensation Comments Pt reports BLE neuropathy Muscle Tone Muscle Tone WNL Yes M6 PT-IP Treatment Start: 09/09/21 10:38 Freq: Status: Active Protocol: Document 09/10/21 09:51 AW (Rec: 09/10/21 12:30 AW [id number]) Physical Therapy Treatment Exercises Exercises Seated Knee Flexion/Extension Education Education Provided Safety Other Treatments Other Treatment Performed Continued education on imprortance of ROM in early phases of rehab. M7 PT-IP Assessment and Plan Start: 09/09/21 10:38 Freq: Status: Active Protocol: Document 09/10/21 09:51 AW (Rec: 09/10/21 12:30 AW [id number]) PT Summary Assessment and Plan Potential Rehabilitation Potential Excellent Status of Condition at Evaluation Evolving Summary Impairments ROM,Strength,Bed Mobility,Gait ,Activity Tolerance Progress Towards Goals Progressing Toward Goals Assessment Summary Pt was able to walk 180 feet and do stair training today. BP improved during activity but dropped again after activity. Pt was asymptomatic and RN was aware. Pt is safe to discharge home with her sister to assist once medically stable. Goals Bed Mobility Goal Independent Transfer Goal Independent,Front Wheeled Walker Gait Goal Standby Assistance,Front Wheel Walker Gait Distance 75 Other Goals Pt will ascend/descend 4 steps with railing and min A to safely access her home. Days to Meet Goals 3 Frequency of Treatment Frequency Of Treatment Twice a Day Treatment Plan Physical Therapy Treatment Plan Bed Mobility Training,Transfer Training,Gait Training, Therapeutic Exercise,Balance Retraining,Post Op Education, Discharge Planning, Neuromuscular Re-ed, Coordination Retraining Weight Bearing Status Weight Bearing Status Weight Bear as Tolerated Recommendations To Nursing Amount of Assist Needed 1 Person Assist Discharge Recommendations PT Discharge Recommendations Home with Assistance, Outpatient PT Transportation Needs at Discharge Private Vehicle
[2021-09-10 10:20] VITALS: BP 105/45
--- NOTE | 2021-09-10 10:45 | CM.DPC ---
DCP Discharge Home Per Ortho MD, pt remains medically stable to attempt discharge home again today after further PT. Per PT, pt was able to ambulate to the stairs and participate but continued to have some bp issues but has improved since yesterday and will attempt again later today. Per RN, pt now feeling better enough for d/c home today with sister to stay and outpt PT set up. SW peeked into pt room and confirmed that she is feeling better today and currently has no d/c concerns and awaiting her sister arrival. Plan: Patient to d/c home later today via sister POV and outpt PT scheduled. No further SW needs at this time. SALVADOR Sanchez
--- NOTE | 2021-09-10 12:14 | PC.NURSE ---
Day shift: Paperwork signed and all questions answered. [facility] and [employer] remain CDI. Pt did well with PT this AM and was cleared/safe to go home. Pt's Sister is going to care for her. LEft unit at approx 1130 via WC. script went electronic to Pt's pharmacy. Taken to car via WC. Pt's sister is driving her home. Pt has all personal belongings.
== END 2021-09-10 12:17 | disposition home or self-care (01) | DRG 470 ==
PROVIDERS: Admitting Provider Orthopaedic Surgery; PCP Nurse Practitioner; Referring Provider Orthopaedic Surgery; Visit Provider Orthopaedic Surgery
PROC: 0SRD0JZ Replacement of Left Knee Joint with Synthetic Substitute, Open Approach (ICD-10-PCS; CPT 27447; principal; 2021-09-08 15:00)
DX: M17.12 Unilateral primary osteoarthritis, left knee (principal); I10 Essential (primary) hypertension; E11.9 Type 2 diabetes mellitus without complications; K21.9 Gastro-esophageal reflux disease without esophagitis; I95.1 Orthostatic hypotension; D64.9 Anemia, unspecified; Z79.84 Long term (current) use of oral hypoglycemic drugs; Z20.822 Contact with and (suspected) exposure to COVID-19
CPT/HCPCS: 36415; 73560; 85014; 85018; 87635; 94762; 97116; 97161; 97530; C1776; C9803; C9290; J0690; J1100; J2250; J2274; J2405; J2704; J3010